=== PATIENT | male | born 1935 | race Caucasian/White ===

== ENCOUNTER 2016-08-09 08:10 | Emergency (ER) | payer MEDICARE, OTHER ==
[~2016-08-09] VITALS: Ht 182.9 cm; Wt 80.0 kg
[~2016-08-09 08:10] MED LIST: AMLO5TAB4 PO; ASC500 PO; ATOR10TA65 PO; CALC-176 PO; CALC0.2511 PO; DIAZ5TAB4 PO; DOXA4TAB3 PO; FINA5TAB72 PO; FOLI-49 PO; LEVO150T67 PO; LINA5TAB PO; MULT1CAP20 PO; TAMS-14 PO
[2016-08-09 08:24] VITALS: Ht 182.9 cm; Wt 80.0 kg
[2016-08-09] MEDS ORDERED: ETOMIDATE 20 MG INJ ONE (08:26)
[2016-08-09] MEDS ORDERED: ETOMIDATE 20 MG INJ IV STA (08:30)
[2016-08-09] MEDS ORDERED: PROPOFOL 100 ML IV STA (08:30)
[2016-08-09] MEDS ORDERED: SUCCINYLCHOLINE CHLORIDE 100 MG/5 ML SYG IV STA (08:30)
[2016-08-09 08:33] LABS: HEMATOCRIT 35.3 % (42.0-52.0); HEMOGLOBIN 11.4 g/dl (14.0-18.0); MEAN CORPUSCULAR HEMOGLOBIN 29.2 pg (29.0-33.0); MEAN CORPUSCULAR HGB CONC 32.1 g/dl (32.0-37.0); MEAN PLATELET VOLUME 9.6 fl (7.4-10.4); PLATELET COUNT 74 10^3/UL (140-440); RED BLOOD COUNT 3.88 10^6/ul (4.70-6.10); RED CELL DISTRIBUTION WIDTH 23.9 % (11.5-14.5); UNCORRECTED WBC 5.8 10^3/ul (4.8-10.8); WHITE BLOOD COUNT 5.8 10^3/ul (4.8-10.8)
[2016-08-09 08:38] LABS: CONDITION 1; LH ANALYZER COMMENTS 1; SUSPECT 1
[2016-08-09 08:41] LABS: ALBUMIN 3.7 g/dl (3.3-4.9)
[2016-08-09 08:42] LABS: CHLORIDE 106 mmol/L (97-110); POTASSIUM 5.3 mmol/L (3.5-5.1); SODIUM 142 mmol/L (135-144)
[2016-08-09 08:44] LABS: ANION GAP 19 (8-16); ASPARTATE AMINO TRANSFERASE 23 IU/L (15-46); BILIRUBIN,INDIRECT 0.3 mg/dl (0-1.1); BILIRUBIN,TOTAL 0.3 mg/dl (0.2-1.3); CARBON DIOXIDE 22 mmol/L (21-31); CREATININE 3.65 mg/dl (0.61-1.24)
[2016-08-09 08:45] LABS: ALANINE AMINOTRANSFERASE 18 IU/L (13-69); ALBUMIN/GLOBULIN RATIO 0.88; ALKALINE PHOSPHATASE 88 IU/L (42-121); BLOOD UREA NITROGEN 49 mg/dl (7-20); CALCIUM 8.6 mg/dl (8.4-10.2); GLUCOSE 104 mg/dl (70-220); TOTAL PROTEIN 7.9 g/dl (6.1-8.1)
[2016-08-09 08:46] LABS: LACTIC ACID 1.4 mmol/L (0.5-2.2)
[2016-08-09 08:51] LABS: INR 1.13; PROTIME 14.5 Sec (12.2-14.2); PT RATIO 1.1
[2016-08-09 08:52] LABS: PARTIAL THROMBOPLASTIN TIME 29.3 Sec (25.0-35.0)
[2016-08-09 08:56] LABS: TROPONIN-I < 0.012 ng/ml (0.00-0.12)
[2016-08-09] MEDS ORDERED: CLEVIDIPINE BUTYRATE 50 ML IV SCH (09:00)
--- NOTE | 2016-08-09 09:08 | RADRPT ---
PROCEDURE: CT Cervical Spine without contrast. CLINICAL INDICATION: Possible Sepsis altered level of consciousness. TECHNIQUE: Multiple axial cuts at 2 mm intervals through the cervical spine with coronal and sagit bessy reformats were obtained without contrast. CT D I 22 mCi. Dose 625 mCi per centimeter COMPARISON: No prior studies are available for comparison. 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 This is consistent with ligamentous interruption and is unstable. In addition, there is a fracture through the junction of the right lamina with the spinous process whic h extends into the spinous process. There is severe narrowing of the vertebral canal posterior to C 3 vertebral body measuring 4.9 millimeters in maximum AP diameter. In addition, there is severe comp romise of the neural foramina at this level. No other fracture is identified. 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 The disk heights are tino ntained. There is no prevertebral soft tissue swelling. 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 No significant soft tissue hematoma is visualized. 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 Ligamentous injury C3-C4 posterior el ements with instability. Fracture at the junction of the right C3 lamina with spinous process exten ding into the spinous process. Severe narrowing vertebral canal at C3-C4 with compromise of the sherwin ral foramina. Findings were telephoned to the charge nurse caring for this patient immediately following the exam as the attending physician was not available. .Vincent Rosenberg MD, MD Date Time Electronically viewed and signed by .Vincent Rosenberg MD, on 08/09/2016 09:08 .A/
--- NOTE | 2016-08-09 09:10 | RADRPT ---
PROCEDURE: CT Brain without contrast. CLINICAL INDICATION: Possible Sepsis trauma. Loss of consciousness. TECHNIQUE: A CT of the brain was performed utilizing axial imaging from the skull base through the vertex without IV contrast. Multiplanar reformatted images were made. Images were reviewed on a [employer] workstation. The CTDIvol is 45 mGy and the DLP is 900 mGycm. COMPARISON: Head CT March 16, 2015 FINDINGS: There is moderate diffuse cerebral volume loss with sulcal and ventricular dilatation. No discrete extra-axial fluid collection or masses present. The ventricles are in the midline and of normal con tour and configuration. Mild white matter disease is seen in both cerebral hemispheres. There is n o associated mass effect. No intracranial hemorrhage is detected. There is left frontal scalp swel ling. No skull fracture is seen. There is hyperostosis frontalis. There is normal aeration of the visualized paranasal sinuses. IMPRESSION: Age-appropriate atrophy. Mild white matter disease compatible with chronic small vessel ischemia. Left frontal scalp swelling. No intracranial hemorrhage or skull fracture. .Vincent Rosenberg MD, Date Time Electronically viewed and signed by .Vincent Rosenberg MD, on 08/09/2016 09:10 .A/
[2016-08-09 09:15] LABS: EOSINOPHILS # 0.1 10^3/ul (0.0-0.5); LYMPHOCYTES # 1.9 10^3/ul (0.8-2.9); MONOCYTE # 1.3 10^3/ul (0.3-0.9); NEUTROPHIL # 2.1 10^3/ul (1.6-7.5)
[2016-08-09 09:49] LABS: ADD UMIC YES; URINE BILIRUBIN (Dip) NEGATIVE (NEGATIVE); URINE BLOOD (Dip) 1+ (NEGATIVE); URINE COLOR LT. YELLOW (YELLOW); URINE GLUCOSE (Dip) NEGATIVE (NEGATIVE); URINE KETONES (Dip) NEGATIVE (NEGATIVE); URINE LEUKOCYTE ESTERASE (Dip) NEGATIVE (NEGATIVE); URINE NITRITE (Dip) NEGATIVE (NEGATIVE); URINE TOTAL PROTEIN (Dip) 2+ (NEGATIVE); URINE UROBILINOGEN (Dip) 0.2 E.U./dL (0.1-1.0)
[2016-08-09 10:25] LABS: BACTERIA,URINE MANY
[2016-08-09 11:15] LABS: AADO2 Arterial 223.2 mmHg (7.0-24.0); Allen Test ACCEPTAB; Arterial Base Excess -7.1 mmol/L (-3.0-3); Arterial COHb 0.3 % (0.0-3.0); Arterial HCO3 17.2 mmol/L (22.0-26.0); Arterial MetHb 0.1 % (0.0-1.5); Arterial Total Hemglobin 11.6 g/dl (12.0-18.0); MODE VENT - AC
[2016-08-09 12:00] VITALS: RESP 18
[2016-08-09 12:15] VITALS: BP 121/60; PULSE 40; TEMP 93.1
--- NOTE | 2016-08-09 12:20 | ERD ---
ER Documentation Chief Complaint Date/Time DATE: 08/09/16 TIME: 12:13 Chief Complaint found down by at home bradycardic and aloc HPI This is an 80-year-old male who presents to the emergency room for altered mental status. This patient was found down at home after his saw him fall over from a chair. She states that he was minimally responsive and she called 911. EMS states that this patient had a pulse, and a blood pressure however he was confused and altered and brought to the emergency room for further evaluation. I could not ascertain a detailed history from the patient secondary to his clinical condition at this time. ROS All systems reviewed and are negative except as per history of present illness. Medications Home Meds Active Scripts Linagliptin (TRADJENTA) 5 Mg Tablet, 5 MG PO DAILY for 30 Days, #30 TAB 5 Refills Prov:CARMINE HENRY MD 05/30/16 Doxazosin Mesylate* (Doxazosin Mesylate*) 4 Mg Tablet, 8 MG PO HS for 30 Days, # 60 TAB 5 Refills Prov:CARMINE HENRY MD 05/30/16 Reported Medications Atorvastatin Calcium (Atorvastatin Calcium) 10 Mg Tablet, 10 MG PO QHS, #30 TAB 05/20/16 Amlodipine Besylate* (Norvasc*) 5 Mg Tablet, 5 MG PO DAILY, TAB 05/20/16 Diazepam* (Diazepam*) 5 Mg Tablet, 5 MG PO TID, TAB 05/20/16 Ascorbic Acid (Vitamin C) 500 Mg Tab, 500 MG PO DAILY, TAB 02/27/15 Calcium Cmb 2-Mag Cmb 12-Vit D3 (Calcium 500) 1 Each Tablet, 1 TAB PO DAILY, TAB 02/27/15 Multivitamins* (Multivitamin*) 1 Udcap Capsule, 1 TAB PO DAILY, TAB 02/27/15 Calcitriol* (Calcitriol*) 0.25 Mcg Capsule, 0.25 MCG PO EVERY OTHER DAY, CAP 02/27/15 Finasteride* (Proscar*) 5 Mg Tablet, 5 MG PO DAILY, TAB 02/27/15 Levothyroxine Sodium* (Levothyroxine Sodium*) 150 Mcg Tablet, 150 MCG PO AC BREAKFAST, TAB 02/27/15 Folic Acid* (Folic Acid*) 1 Mg Tablet, 1 MG PO BID, TAB 02/27/15 Tamsulosin Hcl* (Flomax*) 0.4 Mg Cap.sr.24h, 0.4 MG PO DAILY 04/12/12 Allergies Allergies: Coded Allergies: memantine (Verified Allergy, Severe, 08/09/16) allopurinol (Verified Allergy, Unknown, 08/09/16) ciprofloxacin (Verified Allergy, Unknown, 08/09/16) ciprofloxacin HCl (Verified Allergy, Unknown, 08/09/16) codeine (Verified Allergy, Unknown, 08/09/16) donepezil (Verified Allergy, Unknown, 08/09/16) PMhx/Soc History of Surgery: Yes (Neck surgery) Anesthesia Reaction: No Hx Neurological Disorder: No Hx Respiratory Disorders: Yes (sleep apnea, noncompliant with CPAP) Hx Cardiac Disorders: Yes (htn, ) Hx Psychiatric Problems: No Hx Miscellaneous Medical Probl: Yes (hypothyroidism, BPH, DM, Dialysis(Stopped 2 years ago)) Hx Alcohol Use: No Hx Substance Use: No Hx Tobacco Use: No Smoking Status: Former smoker Physical Exam Vitals Vital Signs Date Time Temp Pulse Resp B/P Pulse Ox O2 Delivery O2 Flow Rate FiO2 08/09/16 11:30 96.9 40 18 117/64 100 Mechanical Ventilator 40 08/09/16 11:15 96.8 40 18 112/60 Mechanical Ventilator 08/09/16 11:00 96.8 40 117/63 100 Mechanical Ventilator 08/09/16 10:44 93.5 40 18 100 Mechanical Ventilator 08/09/16 10:30 94.0 40 20 119/63 100 Mechanical Ventilator 08/09/16 10:00 93.5 40 18 111/63 100 Mechanical Ventilator 08/09/16 09:45 93.5 40 18 121/62 100 Mechanical Ventilator 08/09/16 09:30 93.5 40 18 129/65 100 Mechanical Ventilator 08/09/16 08:24 95.9 60 30 123/103 99 08/09/16 08:10 42 18 100 100 Physical Exam INITIAL VITAL SIGNS: Reviewed by me GENERAL: The patient is well developed, however moderate respiratory distress HEENT: Pupils equal, round, and reactive to light. EOMI. There is no scleral icterus. NECK: Patient is in c-collar, C-spine is soft and supple, there is no meningismus. There is no cervical lymphadenopathy. LUNGS: Clear to auscultation bilaterally. There are no rales, wheezes or rhonchi. HEART: Bradycardia, no murmurs, clicks, rubs or gallops. ABDOMEN: Soft, non-tender, non-distended. There are bowel sounds in all four quadrants. No rebound or guarding. EXTREMITIES: There is no peripheral cyanosis or edema. No focal swelling or erythema. NEUROLOGICAL: GCS of 3 SKIN: There is no apparent rash or petechiae. HEME/LYMPHATIC: There is no evidence of excessive bruising or lymphedema. PSYCHIATRIC: The patient does not appear anxious or depressed. Result Diagram: 08/09/16 0815 08/09/1615 Results 24 hrs Laboratory Tests Test 08/09/16 08:15 08/09/16 09:04 08/09/16 09:35 08/09/16 10:20 Activated Partial Thromboplast Time 29.3Sec Alanine Aminotransferase (ALT/SGPT) 18IU/L Albumin 3.7g/dl Albumin/Globulin Ratio 0.88 Alkaline Phosphatase 88IU/L Ammonia 19umol/l Anion Gap 19 Aspartate Amino Transf (AST/SGOT) 23IU/L Band Neutrophils % 5.0% Basophils # 10^3/ul Basophils % % Blood Morphology Comment Blood Urea Nitrogen 49mg/dl Calcium Level 8.6mg/dl Carbon Dioxide Level 22mmol/L Chloride Level 106mmol/L Creatinine 3.65mg/dl Differential Comment MANUAL DIFF Direct Bilirubin 0.00mg/dl Eosinophils # 0.110^3/ul Eosinophils % 2.0% Globulin 4.20g/dl Glucose Level 104mg/dl Hematocrit 35.3% Hemoglobin 11.4g/dl INR International Normalized Ratio 1.13 Indirect Bilirubin 0.3mg/dl Lactic Acid Level 1.4mmol/L 0.9mmol/L Lymphocytes # 1.910^3/ul Lymphocytes % 33.0% Mean Corpuscular Hemoglobin 29.2pg Mean Corpuscular Hemoglobin Concent 32.1g/dl Mean Corpuscular Volume 91.0fl Mean Platelet Volume 9.6fl Monocytes # 1.310^3/ul Monocytes % 23.0% Neutrophils # 2.110^3/ul Neutrophils % 37.0% Nucleated Red Blood Cells # 10^3/ul Nucleated Red Blood Cells % 1.0/100WBC Platelet Count 7410^3/UL Potassium Level 5.3mmol/L Prothrombin Time 14.5Sec Prothrombin Time Ratio 1.1 Red Blood Count 3.8810^6/ul Red Cell Distribution Width 23.9% Sodium Level 142mmol/L Total Bilirubin 0.3mg/dl Total Protein 7.9g/dl Troponin I < 0.012ng/ml White Blood Count 5.810^3/ul Arterial Blood HCO3 17.2mmol/L Arterial Blood Base Excess -7.1mmol/L Arterial Blood Oxygen Saturation 99.4mmHG Vish Test ACCEPTAB Arterial Blood Gas Puncture Site Left Radial Arterial Blood Carboxyhemoglobin 0.3% Arterial Blood Date Drawn 08/09/2016 11:10:11 AM Arterial Blood Methemoglobin 0.1% Arterial Blood pCO2 (Temp correct) 30.7mmhg Arterial Blood pH (Temp corrected) 7.366 Arterial Blood pO2 (Temp corrected) 459.1mmHG Blood Gas A-a O2 Differential 223.2mmHg Blood Gas Actual Respiration Rate 18 Blood Gas Modality VENT - AC Blood Gas Notified Time 08/09/2016 11:14:48 AM Blood Gas Notified Whom MDA Blood Gas Respiration Rate 18.0 Blood Gas Specimen Source Blood arterial Blood Gas Temperature 37.0C Blood Gas Tidal Volume 500.0mL FiO2 100.0% Oxyhemoglobin Percent 99.0% Total Hemoglobin 11.6g/dl Urine Bacteria MANY Urine Bilirubin NEGATIVE Urine Clarity CLEAR Urine Color LT. YELLOW Urine Epithelial Cells FEW Urine Glucose NEGATIVE% Urine Hemoglobin 1+ Urine Ketones NEGATIVE Urine Leukocyte Esterase NEGATIVE Urine Microscopic RBC 10-25/HPF Urine Microscopic WBC 5-10/HPF Urine Nitrite NEGATIVE Urine Specific [place] 1.025 Urine Total Protein 2+ Urine Urobilinogen 0.2 E.U./dL Urine pH 6.0 Current Medications Medications (Trade) Dose Ordered Sig/Zoe Route PRN Reason Start Time Stop Time Status Last Admin Dose Admin Succinylcholine Chloride (Anectine Syringe) 100 mg ONCE STAT IV 08/09/16 08:30 08/09/16 08:31 DC Etomidate 20 mg 20 mg ONCE STAT IV 08/09/16 08:30 08/09/16 08:31 DC Propofol (Diprivan) 100 ml @ 2.4 mls/hr ONCE STAT IV 08/09/16 08:30 08/11/16 02:09 08/09/16 09:31 Procedures/MDM Chest X-ray 1V Interpreted by me: Soft Tissue: ET tube 3 cm above sirisha Bones: No acute abnormalities Mediastinum/Cardiac Silhouette/Lungs: [No acute abnormalities] EKG: Rate/Rhythm: Atrial fibrillation, bradycardia QRS, ST, T-waves: [No changes consistent w/ acute ischemia] Impression: Atrial fibrillation with bradycardia CT head without: Age-appropriate atrophy. Mild white matter disease compatible with chronic small vessel ischemia. Left frontal scalp swelling. No intracranial hemorrhage or skull fracture. 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 Ligamentous injury C3-C4 posterior elements with instability. Fracture at the junction of the right C3 lamina with spinous process extending into the spinous process. Severe narrowing vertebral canal at C3-C4 with compromise of the neural foramina. This is an 80-year-old male who presents to the emergency room for evaluation of altered mental status. This patient did fall forward and hit his head. When he came he was in a c-collar, was altered and was not protecting his airway. I did intubate this patient for airway protection. Please see intubation note. Lab work was obtained which does show his renal insufficiency which is chronic. CT of the cervical spine does show a unstable C3 fracture with ligamentous damage. I have talked to her neurosurgeon on-call who recommends transfer to trauma center. I have contacted the trauma surgeon at [facility], Dr. Espinosa who accepts this patient at this time. This patient will be transferred to [facility] for further evaluation and possible surgical intervention. I spoken to the family numerous times and they are in agreement with the plan of care. This patient will be transferred at this time with critical care transport. Endotracheal Intubation by me: Pre assessment performed. See preceding note for details. Pre-oxygenation performed with 100% oxygen RSI: Performed w/o complication or hypoxic events. Medications as ordered. Blade: [Mac 4] ET Tube: 7.5 cm Depth: 23 cm at the lip Intubation confirmed by colorimetric CO2, equal breath sounds, quiet over the stomach. Chest X-ray 1V Interpreted by me: 3cm above the sirisha ET tube. Normal soft tissue, No pneumothorax. Critical Care: Excluding all billable procedures Time: 48 minutes Treatments/Evaluations: Close monitoring and treatment of unstable vital signs, cardiorespiratory, and neurologic status, while maintaining tight balance of fluid, respiratory, and cardiac interventions. Departure Diagnosis: Primary Impression: C3 cervical fracture Additional Impressions: Injury to ligament of cervical spine Renal insufficiency Chronic venous insufficiency Thrombocytopenia Bradycardia Condition: Stable YING GUTIERREZ DO Aug 09, 2016 12:20
--- NOTE | 2016-08-09 12:33 | RADRPT ---
PROCEDURE: XR Chest. CLINICAL INDICATION: Shortness of breath, possible sepsis. TECHNIQUE: Single frontal view of the chest was obtained. COMPARISON: Earlier study from the same date of 0830 hours FINDINGS: The study is obtained in expiration. Cardiac silhouette appears mildly prominent. There is aortic calcification. There is bibasilar subsegmental atelectasis which may be exaggerated by the expirato ry nature of the study. IMPRESSION: 1. Mild apparent cardiomegaly and aortic atherosclerosis. 2. Bibasilar subsegmental atelectasis which may be pronounced by the expiratory nature of the study . RPTAT: [facility] Physician Jennifer Date Time Electronically viewed and signed by Javier Ibarra Physician on 08/09/2016 12:32 /
== END 2016-08-09 12:52 | disposition short-term general hospital (02) ==
LOC: E/R 08:10
DX: S12.200A Unspecified displaced fracture of third cervical vertebra, initial encounter for closed fracture (principal); N28.9 Disorder of kidney and ureter, unspecified; I87.2 Venous insufficiency (chronic) (peripheral); D69.6 Thrombocytopenia, unspecified; R00.1 Bradycardia, unspecified; I10 Essential (primary) hypertension; E11.9 Type 2 diabetes mellitus without complications; E03.9 Hypothyroidism, unspecified; W07.XXXA Fall from chair, initial encounter; Y92.009 Unspecified place in unspecified non-institutional (private) residence as the place of occurrence of the external cause; Z87.891 Personal history of nicotine dependence
CPT/HCPCS: 31500; 36415; 36600; 70450; 71010; 72125; 80053; 81001; 82140; 82803; 82962; 83605; 84484; 85025; 85610; 85730; 87040; 87086; 93005; 94002; 99291; J0330; 81003